=== PATIENT | male | born 1955 | race Two or more races ===

== ENCOUNTER 2024-09-28 20:44 | Emergency (ER) | payer OTHER ==
[~2024-09-28] VITALS: Ht 170.2 cm; Wt 118.1 kg
--- NOTE | 2024-09-28 20:54 | ED.PDOC ---
HPI Comments 69 year old morbidly obese male presents to the ED with a chief complaint of chest pain onset today (09/28/24) about 2 hours ago. Patient states he began experiencing chest pain radiating to epigastric region, as well as shortness of breath, fatigue. He was recently diagnosed with CHF, is on 2L O2 at home. Patient noticed throat discomfort, changes in voice. PMHx CHF, HTN. Denies dizziness, cough, congestion, nausea,vomiting, diarrhea, fevers, chills. No other symptoms or modifying factors present at this time. Chief Complaint: Chest Pain Time Seen by MD: 18:50 Reviewed Notes: Nurses Notes, Medications, Allergies Allergies: Coded Allergies: Tramadol (Verified Allergy, Severe, 09/28/24) Information Source: Patient, Relative Mode of Arrival: Wheelchair Severity: Moderate Timing: Hours Duration: Since onset Prehospital treatment: Oxygen (2 L) Location: Chest (L) Radiation: Abdomen (epigastric) Quality: Sharp Onset: At Rest Cardiac Risk Factors: Smoker, HTN, Diabetes PE Risk Factors: None History of: None Associated Signs and Symptoms: SOB Past Medical History PAST MEDICAL HISTORY: CHF, HTN Surgical History: Denies all surgeries Family History Family History: Reviewed,noncontributory to illness, No family hx of Cancer, No family hx of DM, No family hx of Heart kimber[place], No family hx of HTN, No family hx ofKidney kimberley, No family hx of Liver kimberley, No family hx of Lung kimberley, No family hx of Stroke Social History Smoker: Cigarettes Alcohol: Occasionally Drugs: Denies Drug Use Lives In: Home Constitutional: reports: fatigue; denies: chills, diaphoresis, fever, malaise, sweats, weakness, others EENTM: denies: blurred vision, double vision, ear bleeding, ear discharge, ear drainage, ear pain, ear ringing, eye pain, eye redness, hearing loss, mouth pain, mouth swelling, nasal discharge, nose bleeding, nose congestion, nose pain, photophobia, tearing, throat pain, throat swelling, voice changes, others Respiratory: reports: shortness of breath; denies: cough, hemoptysis, orthopnea, SOB at rest, SOB with excertion, stridor, wheezing, others Cardiovascular: reports: chest pain; denies: dizzy spells, diaphoresis, Dyspnea on exertion, edema, irregular heart beat, left arm pain, lightheadedness, palpitations, PND, syncope, others Gastrointestinal: denies: abdomen distended, abdominal pain, blood streaked bowels, constipated, diarrhea, dysphagia, difficulty swallowing, hematemesis, melena, nausea, poor appetite, poor fluid intake, rectal bleeding, rectal pain, vomiting, others Genitourinary: denies: burning, dysuria, flank pain, frequency, hematuria, incontinence, penile discharge, penile sore, pain, testicle pain, testicle swelling, urgency, others Neurological: denies: dizziness, fainting, headache, left sided numbness, left sided weakness, numbness, paresthesia, pre-existing deficit, right sided numbness, right sided weakness, seizure, speech problems, tingling, tremors, weakness, others Musculoskeletal: denies: back pain, gout, joint pain, joint swelling, muscle pain, muscle stiffness, neck pain, others Integumetry: denies: bruises, change in color, change in hair/nails, dryness, laceration, lesions, lumps, rash, wounds, others Allergic/Immunocompromised: denies: Difficulty Healing, Frequent Infections, Hives, Itching, others Hematologic/Lymphatic: denies: anemia, blood clots, easy bleeding, easy bruising, swollen glands, others Endocrine: denies: excessive hunger, excessive sweating, excessive thirst, excessive urination, flushing, intolerance to cold, intolerance to heat, unexpl ained weight gain, unexplained weight loss, others Psychiatric: denies: anxiety, bipolar disorder, depression, hopeless, panic disorder, schizophrenia, sleepless, suicidal, others All Other Systems: Reviewed and Negative Physical Exam General Appearance: Moderate Distress ([id number]-bt-[id number] distress due to chest pain concerns. Patient appears to be in poor overall health.), Normal HEENT: Normal ENT Inspection, Pharynx Normal, TMs Normal Neck: Full Range of Motion, Non-Tender, Normal, Normal Inspection Respiratory: Chest Non-Tender, No Accessory Muscle Use, Normal Breath Sounds, Other (Patchy rhonchi noted globally bilaterally as well as mild wheezing in right middle lobe.) Cardiovascular: No Edema, No JVD, No Murmur, No Gallop, Normal Peripheral Pulses, Regular Rate/Rhythm Breast Exam: Deferred Gastrointestinal: No Organomegaly, Non Tender, No Pulsatile Mass, Normal Bowel Sounds, Soft Genitalia: Deferred Pelvic: Deferred Rectal: Deferred Extremities: No calf tenderness, Normal capillary refill, No pedal edema Musculoskeletal : Apperance: Normal Neurologic: Alert, No Motor Deficits, Normal Mood Cerebellar Function: NOT DONE Reflexes: NOT DONE Skin: Dry, Normal Color, Warm Lymphatic: No Adenopathy Was a procedure done? Was a procedure done?: No CP Differential Dx Differential Diagnosis: A-fib, A-Flutter, Anxiety / Panic Attack, Atrial Dysrhythmia, AV Block 1st Degree, NV Differential Diagnosis: Angina, Chest Wall Pain, Pneumonia X-Ray, Labs, Meds, VS Vital Signs Date Time Temp Pulse Resp B/P (MAP) Pulse Ox O2 Delivery O2 Flow Rate FiO2 09/28/24 22:44 97.7 51 18 107/55 (72) 95 97.7 09/28/24 22:44 51 18 95 Nasal Cannula 2.0 09/28/24 20:45 97.8 54 18 110/51 (70) 94 97.8 Lab Test 09/28/24 21:36 09/28/24 20:49 Range/Units Troponin I High Sensitivity 5 5 </=54 ng/L White Blood Count 9.0 4.4-10.8 10^3/uL Red Blood Count 4.72 4.5-5.90 10^6/uL Hemoglobin 14.3 13.5-17.5 g/dL Hematocrit 43.0 41.0-53.0 % Mean Corpuscular Volume 91.1 80.0-100.0 fL Mean Corpuscular Hemoglobin 30.4 28.0-32.0 pg Mean Corpuscular Hemoglobin Concent 33.4 32.0-36.0 g/dL Red Cell Distribution Width 13.2 11.8-14.3 % Platelet Count 250 140-450 10^3/uL Mean Platelet Volume 7.4 6.9-10.8 fL Neutrophils (%) (Auto) 76.4 37.0-80.0 % Lymphocytes (%) (Auto) 12.4 10.0-50.0 % Monocytes (%) (Auto) 8.4 0.0-12.0 % Eosinophils (%) (Auto) 2.3 0.0-7.0 % Basophils (%) (Auto) 0.5 0.0-2.0 % Neutrophils # (Auto) 6.9 1.6-8.6 10 ^3/uL Lymphocytes # (Auto) 1.1 0.4-5.4 10 ^3/uL Monocytes # (Auto) 0.8 0-1.3 10 ^3/uL Eosinophils # (Auto) 0.2 0-0.8 10 ^3/uL Basophils # (Auto) 0 0-0.2 10 ^3/uL Nucleated Red Blood Cells 0.1 % D-Dimer, Quantitative 0.33 0.0-0.49 mg/L FEU Sodium Level 139 136-145 mmol/L Potassium Level 4.4 3.5-5.1 mmol/L Chloride Level 100 98-107 mmol/L Carbon Dioxide Level 32 H 20-31 mmol/L Anion Gap 7 5-15 Blood Urea Nitrogen 19 9-23 mg/dL Creatinine 1.28 0.700-1.30 mg/dL Glomerular Filtration Rate Calc 60 >90 mL/min BUN/Creatinine Ratio 14.8 10.0-20.0 Serum Glucose 106 74-106 mg/dL Calcium Level 9.5 8.7-10.4 mg/dL Total Bilirubin 0.7 0.2-1.0 mg/dL Aspartate Amino Transferase (AST) 19 <34 U/L Alanine Aminotransferase (ALT) 22 7-40 U/L Alkaline Phosphatase 87 46-116 U/L B-Type Natriuretic Peptide 71.42 0-100 pg/mL Total Protein 6.4 5.7-8.2 g/dL Albumin 4.2 3.2-4.8 g/dL Current Medications Medications (Trade) Dose Ordered Sig/Paul Route Start Time Stop Time Status Last Admin Dexamethasone Sodium Phosphate (Decadron Injection) 10 mg ONCE ONCE IM 09/28/24 21:00 09/28/24 21:01 DC 09/28/24 22:[address] [address] Ph: [phone] DIAGNOSTIC IMAGING Diagnostic Imaging Report : [id number] Signed PATIENT: CLEVE MARTIN ACCT: [id number] UNIT: [id number] : 1955 LOC: ER ROOM / BED: / AGE / SEX: 69 / M ADM STATUS: REG ER SERVICE 50 ORDERING PHYSICIAN: ADRIANE RITCHIE PAC PROCEDURE(s): CXRP - CHEST PORTABLE REASON: Shortness of breath ORDER NUMBER(s): [id number], ACCESSION NUMBER(s): [id number] CHEST RADIOGRAPH REASON FOR EXAM: Shortness of breath COMPARISON: None TECHNIQUE: One view of the chest is provided FINDINGS: The cardiomediastinal silhouette is within normal limits for size. There is aortic atherosclerosis. There is no focal airspace disease. There is bronchial wall thickening. There is no significant pleural effusion. No pneumothorax is identified. No acute osseous abnormality is identified. IMPRESSION: No focal airspace disease. Bronchial wall thickening suggestive of bronchitis. ATED BY: ORESTES SALGADO MD DICTATED DATE/TIME: 09/28/242126 SIGNED BY: ORESTES SALGADO MD SIGNED DATE/TIME: 09/28/242126 CC: X-Ray, Labs, Meds, VS Comment All studies performed the ED were evaluated by me personally. I attempted to ascertain urine for urinalysis for several hours prior to this note. Patient was unable to provide urine. Urinalysis remains pending at time of this note. Laboratories studies were unremarkable for any systemic concerns. EKG revealed a sinus rhythm with a rate of 50. Prolonged WA interval as well as low voltage in precordial leads was noted. WA interval of 221 and QT interval of 473. Chest x-ray reveals some consolidation that is what appears to be bronchitis. Due to the bronchitis concerns as well as the bradycardic EKG and possible sick sinus syndrome concerns, patient will be admitted for cardiac evaluation to address his sinus Alban as well as antibiotic management in his bronchitis. Discussed the need for admission with the patient and he agreed to the admission. Time of 1ST Reevaluation: 02:13 Reevaluation 1ST: Improved Consultation: PCP Patient Education/Counseling: Diagnosis, Treatment Family Education/Counseling: Diagnosis, Treatment SEPSIS Sepsis Screen Recent Procedure: No On Antibiotic Therapy: No Respiratory Rate >20: No Heart Rate >90: No Temp<36 C (96.8 F) or >38.3 C: No SBP <90 or MAP <65 mmHG: No New Acute Mental Status Change: No Is the patient on CPAP, BIPAP,: No Physician Orders Electrocardigram (09/28/24 20:46) Electrocardigram (09/28/24 21:46) Electrocardigram (09/28/24 23:46) Chest Portable (09/28/24 20:51) Urinalysis (09/28/24 20:51) Vital Signs Date Time Temp Pulse Resp B/P (MAP) Pulse Ox O2 Delivery O2 Flow Rate FiO2 09/28/24 22:44 97.7 51 18 107/55 (72) 95 97.7 09/28/24 22:44 51 18 95 Nasal Cannula 2.0 09/28/24 20:45 97.8 54 18 110/51 (70) 94 97.8 Laboratory Tests Test 09/28/24 20:49 White Blood Count 9.0 10^3/uL (4.4-10.8) Medications Medications Dose Ordered Sig/Paul Route Start Time Stop Time Status Last Admin Dose Admin Dexamethasone Sodium Phosphate 10 mg ONCE ONCE IM 09/28/24 21:00 09/28/24 21:01 DC 09/28/24 22:24 Departure 1 Departure Time of Disposition: 02:14 Impression: Primary Impression: Bronchitis Additional Impression: Bradycardia Disposition: 09 ADMITTED INPATIENT Condition: Fair Discharged With: Self, Spouse Critical Care Note Critical Care Time?: No Stability Stability form required: No Heart Score Heart Score: Heart Score Response (Comments) Value History Slightly Suspicious 0 EKG Repolarization Disturb 1 Age >65 2 Risk Factors >3 or Hx ASHD 2 Troponin Normal limit 0 Total 5 I personally scribed for ADRIANE RITCHIE PAC ([email or web address]) on 09/28/24 at 20:54. Electronically submitted by Susanne Lo ([email or web address]). I personally scribed for ADRIANE RITCHIE PAC ([email or web address]) on 09/28/24 at 21:33. Electronically submitted by Susanne Lo ([email or web address]). ADRIANE RITCHIE PAC Sep 28, 2024 20:54
[2024-09-28 21:00] LABS: Basophils # (auto) 0 10 ^3/uL (0-0.2); Basophils % (auto) 0.5 % (0.0-2.0); Eosinophils # (auto) 0.2 10 ^3/uL (0-0.8); Eosinophils % (auto) 2.3 % (0.0-7.0); Hemoglobin 14.3 g/dL (13.5-17.5); Lymphocytes # (auto) 1.1 10 ^3/uL (0.4-5.4); Lymphocytes % (auto) 12.4 % (10.0-50.0); Mean Corpuscular Hemoglobin 30.4 pg (28.0-32.0); Mean Corpuscular Hgb Conc. 33.4 g/dL (32.0-36.0); Mean Corpuscular Volume 91.1 fL (80.0-100.0); Monocytes # (auto) 0.8 10 ^3/uL (0-1.3); Monocytes % (auto) 8.4 % (0.0-12.0); Neutrophils # (auto) 6.9 10 ^3/uL (1.6-8.6); Neutrophils % (auto) 76.4 % (37.0-80.0); Nucleated Red Blood Cells % 0.1 %; Platelet Count (auto) 250 10^3/uL (140-450); Red Blood Cells 4.72 10^6/uL (4.5-5.90); Red Cell Distribution Width 13.2 % (11.8-14.3)
[2024-09-28 21:15] LABS: Alanine Aminotransferase 22 U/L (7-40); Albumin 4.2 g/dL (3.2-4.8); Alkaline Phosphatase 87 U/L (46-116); Anion Gap 7 (5-15); Aspartate Aminotransferase 19 U/L (<34); BUN/Creatinine Ratio 14.8 (10.0-20.0); Blood Urea Nitrogen 19 mg/dL (9-23); Calcium 9.5 mg/dL (8.7-10.4); Chloride 100 mmol/L (98-107); Glucose 106 mg/dL (74-106); Potassium 4.4 mmol/L (3.5-5.1); Sodium 139 mmol/L (136-145); Total Protein 6.4 g/dL (5.7-8.2)
[2024-09-28 21:16] LABS: Bilirubin, Total 0.7 mg/dL (0.2-1.0)
[2024-09-28 21:18] LABS: Carbon Dioxide 32 mmol/L (20-31)
--- NOTE | 2024-09-28 21:30 | DVH ---
CHEST RADIOGRAPH REASON FOR EXAM: Shortness of breath COMPARISON: None TECHNIQUE: One view of the chest is provided FINDINGS: The cardiomediastinal silhouette is within normal limits for size. There is aortic atherosc lerosis. There is no focal airspace disease. There is bronchial wall thickening. There is no signifi cant pleural effusion. No pneumothorax is identified. No acute osseous abnormality is identified. IMPRESSION: No focal airspace disease. Bronchial wall thickening suggestive of bronchitis.
[2024-09-28] MEDS: DexAMETHasone SOD PHOS 10MG/1ML VIAL INJ IM ONE (22:24)
[2024-09-29 04:55] VITALS: BP 100/65; PULSE 57; RESP 18; TEMP 98.1; O2SAT 98
--- NOTE | 2024-09-29 06:35 | ECG ---
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
--- NOTE | 2024-09-29 06:36 | ECG ---
[facility] Test Date: 2024-09-28 Test Time: 22:57:14 Pat Name: CLEVE MARTIN Department: ER Room: Gender: M Therapy Tech: : 1955 Requested By: EMERGENCY EMERGENCY Order Number: [id number] Reading MD: Maikol Euceda Measurements Intervals [place] Rate: 49 P: 74 [place]: 197 QRS: 71 QRSD: 95 T: 20 QT: 457 QTc: 413 Interpretive Statements Sinus bradycardia Low voltage, precordial leads Probable anteroseptal infarct, old Electronically Signed On 10-02-2024 22:37:42 PDT by Maiokl Euceda Please click the below link to view image of tracing.
--- NOTE | 2024-10-02 14:37 | ECG ---
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
== END 2024-09-29 03:11 | disposition short-term general hospital (02) ==
LOC: ER 20:44
DX: J40 Bronchitis, not specified as acute or chronic (principal); R00.1 Bradycardia, unspecified; F17.210 Nicotine dependence, cigarettes, uncomplicated; E66.01 Morbid (severe) obesity due to excess calories; F10.90 Alcohol use, unspecified, uncomplicated; I11.0 Hypertensive heart disease with heart failure; I50.9 Heart failure, unspecified; Z88.5 Allergy status to narcotic agent; Z68.41 Body mass index [BMI] 40.0-44.9, adult; Y90.9 Presence of alcohol in blood, level not specified
CPT/HCPCS: 36415; 71045; 80053; 83880; 84484; 85025; 85379; 93005; 96372; 99285; J1100